=== PATIENT | male | born 1960 ===

== ENCOUNTER 2020-05-16 19:00 | Observation (INO) | payer MEDICARE, MEDICAID, SELFPAY ==
--- NOTE | 2020-05-16 19:04 | USR_ITS ---
PROCEDURE INFORMATION: Exam: US Duplex Right Lower Extremity Veins, Limited Exam date and time: 05/16/2020 7:45 PM Age: 59 years old Clinical indication: Edema, localized; Lower extremity, right; Patient HX: Swelling of RT. Lower leg; Additional info: Dvt TECHNIQUE: Imaging protocol: Real-time Duplex ultrasound of the Right Lower Extremity with 2-D du scale, color Doppler flow and spectral waveform analysis with image documentation. Limited exam was focused on the right lower extremity veins. COMPARISON: No relevant prior studies available. FINDINGS: Right deep veins: There is echogenic thrombus which obstructs and distends the right popliteal vein and the right peroneal vein. Normal Doppler flow and compressibility is seen in the right common femoral vein and superficial femoral vein. There is normal Doppler flow in the right posterior tibial vein. Right superficial veins: Unremarkable. Saphenofemoral junction is patent without thrombus. Soft tissues: Unremarkable. US/[place] [id number] IMPRESSION: Acute DVT in the right popliteal vein and peroneal vein of the calf.
[2020-05-16 19:15] VITALS: BP 147/89; PULSE 90; RESP 15; TEMP 36.8; O2SAT 98; BMI 24.2
--- NOTE | 2020-05-16 19:32 | XR_ITS ---
WS: [id number] Exam: XR foot RT 2V [id number] Date/Time of Exam: 05/16/2020 7:55 PM Reason For Exam: pain/swelling No fracture or dislocation. No destructive bone changes are seen. No soft tissue foreign bodies. Mini mal degenerative changes. XR/XR foot RT 2V [id number] IMPRESSION: 1. Minimal degenerative changes. No sign of fracture, bone destruction or other significant finding.
--- NOTE | 2020-05-16 19:32 | XR_ITS ---
WS: [id number] Exam: XR ankle RT 2V [id number] Date/Time of Exam: 05/16/2020 7:55 PM Reason For Exam: pain/swelling No acute fracture or dislocation. Lateral soft tissue swelling. The ankle mortise is intact. XR/XR ankle RT 2V [id number] IMPRESSION: 1. Lateral soft tissue swelling-no acute fracture.
[2020-05-16] MEDS: acetaminophen 325 mg Tablet 650 MG PO (19:44)
[2020-05-16 20:01] VITALS: BP 138/84; PULSE 82; RESP 18; O2SAT 97
--- NOTE | 2020-05-16 20:09 | W.ED.EXTPRO ---
HPI - Extremity Problem General: Chief complaint: Extremity Problem,Nontraumatic Stated complaint: Rt leg swelling/painful Time Seen by Provider: 05/16/20 19:27 History of Present Illness: HPI Narrative: The patient is a 59-year-old male who comes to the ER complaining of left ankle and foot pain and swelling. He says he is homeless and walks frequently and in the cold it hurts him. He does not remember injuring it though it is swollen. As he is frequently seen in [facility] he has been living in [place] for the past few months so has not seen a doctor in a while. Denies chest pain and shortness of breath. MD Complaint: extremity pain, extremity swelling and joint swelling Onset (ago): day(s) (365) Pain Consistency: constant Location: right and lower extremity Quality: sharp Radiation: none Relieving factors: nothing Exacerbating factors: walking Associated symptoms: Reports no associated symptoms; Deny chest pain or rash Review of Systems General: Reports: 10 or more systems reviewed and unremarkable except in HPI and below Const: Denies: fatigue Eyes: Denies: change in vision, blurry vision or eye redness ENMT: Denies: throat pain, swelling of lips/tongue, ear or mastoid pain or nasal congestion Card: Denies: chest pain, palpitations, irregular heart rhythm, edema, dyspnea on exertion or orthopnea Resp: Denies: dyspnea, productive cough or non-productive cough GI: Denies: abdominal pain, diarrhea or GI cramping : Denies: flank pain, urinary frequency or urinary urgency Musc: Denies: neck pain, back pain, extremity pain, joint pain, joint redness, limited range of motion or muscle weakness Skin/Breast: Reports: skin swelling (rt ankle/foot); Denies: rash, pruritus, erythema, skin pain or skin tenderness Neuro: Denies: headache(s), numbness in extremities, weakness in extremities, sensory changes, difficulty walking, dizziness, confusion or Slurred speech present Psych: Denies: anxiety or depression Endo: Denies: polyuria All/Imm: Denies: urticaria, throat swelling or tongue swelling Physical Exam Const: COMMON NORMALS: no acute distress, average body habitus, patient oriented x3, no limitations, healthy appearing, alert and well nourished GENERAL APPEARANCE: cooperative, comfortable, well kempt and well developed ORIENTATION/CONSCIOUSNESS: Yes awake, Yes oriented to person, Yes oriented to place and Yes oriented to time HENMT: COMMON NORMALS: normocephalic, external ears normal and Normal external nose present HEAD & SCALP: normal to inspection and normocephalic NOSE: Normal external nose present EXTERNAL EAR: Yes external ears normal MOUTH: Normal oral and palatal mucosa present THROAT: posterior oropharynx normal Eye: COMMON NORMALS: Equal, round and reactive pupils present and EOMs intact bilaterally GENERAL EYE: appearance normal, both eyes and all related structures PUPIL: Yes Equal, round and reactive pupils present Neck/C-Spine: COMMON NORMALS: full ROM, no lymphadenopathy, no meningeal signs and no JVD GENERAL: Yes normal visual inspection Lymph: LYMPHATIC: no lymphadenopathy noted Chest: COMMONS NORMALS: normal inspection of the chest and normal palpation of entire chest wall Resp: COMMON NORMALS: normal respiratory effort, No retractions, No use of accessory muscles, clear to auscultation bilaterally and percussion normal EFFORT & INSPECTION: Yes able to speak in complete sentences AUSCULTATION: clear to auscultation bilaterally PERCUSSION: percussion normal Cardio: COMMON NORMALS: no JVD, regular rate, regular rhythm, S1 normal heart sound present, S2 normal heart sound present and Peripheral pulses 2+ throughout RATE: regular rate RHYTHM: regular rhythm HEART SOUNDS: S1 normal heart sound present and S2 normal heart sound present PERIPHERAL PULSES: Peripheral pulses 2+ throughout GI: COMMON NORMALS: Normal to inspection, nondistended, normoactive bowel sounds present, Soft to palpation, non-tender and no masses INSPECTION: Yes normal to inspection PALPATION: Yes Soft to palpation : COMMON NORMALS: Yes no CVA tenderness BLADDER/KIDNEY EXAM: Yes no CVA tenderness Back/Pelvis: COMMON NORMALS: no CVA tenderness, thoracic and lumbar spine normal to inspection, no thoracic nor lumbar tenderness and thoraco-lumbar ROM normal Extremity: COMMON NORMALS: normal to inspection, full ROM, capillary refill normal, no joint enlargement and no pedal edema NARRATIVE EXTREMITY EXAM: Normal except right lower extremity. 2+ pitting edema mid foot, ankle, and lower calf. No significant bony tenderness. Good DP and PT pulses bilaterally GENERAL: Yes normal exam except as noted Neuro: COMMON NORMALS: patient oriented x3, CN's II-XII intact bilaterally, moves all extremities, no focal motor deficits, no sensory deficits noted and gait normal SENSORIUM/ORIENTATION: Yes alert, Yes oriented to person, Yes oriented to place and Yes oriented to time MENINGEAL SIGNS: Yes no meningeal signs Psych: COMMON NORMALS: mental status grossly normal, Normal thought process present, cooperative, normal affect and speech normal APPEARANCE: Yes well kempt ATTITUDE: Yes calm SPEECH: Yes normal speech THOUGHT PROCESS: Normal thought process present Skin: COMMON NORMALS: no rashes or lesions noted GENERAL SKIN EXAM: no rashes or lesions noted Course Vital Signs: Vital signs: Vital Signs Temperature 98.2 F 05/16/20 19:15 Pulse Rate 82 05/16/20 20:01 Respiratory Rate 18 05/16/20 20:01 Blood Pressure 138/84 05/16/20 20:01 Pulse Oximetry 97 05/16/20 20:01 MDM - Extremity (Nontraumatic) MDM Narrative: Medical decision making narrative: The patient says he has had the swollen foot for a year however his Doppler was positive for DVT to the popliteal vein. It is not completely occlusive. He has good pulses and cap refill. He was started on Lovenox. He does not have an ID and cannot get his medications so he will be admitted. Disucssed with Dr. Barton who accepts observation Differential Diagnosis: Extremity Problem Differential Diagnosis: Likely cellulitis and deep venous thrombosis of upper extremity Lab Data: Labs: Lab Results 05/16/20 05/16/20 05/16/20 Range/Units 20:50 20:50 20:50 WBC 7.0 (4.0-10.0) 10^3/ uL RBC 4.33 (4.1-5.3) 10^6/u L Hgb 13.5 (11.7-16.6) g/dL Hct 42.7 (42.0-52.0) % MCV 98.6 H (80-94) fL MCH 31.2 (28.0-34.0) pg MCHC 31.6 (30.0-36.0) g/dL RDW 14.2 (12.1-15.1) % Plt Count 194 (130-400) 10^3/c mm MPV 11.2 H (7.4-10.4) fL Neut % (Auto) 63.5 % Lymph % (Auto) 28.9 % [place] % (Auto) 5.9 % Eos % (Auto) 1.0 % Baso % (Auto) 0.4 % Neut # (Auto) 4.41 (1.8-7.7) 10^3/u L Lymph # (Auto) 2.0 (0.8-4.8) 10^3/u L [place] # (Auto) 0.4 (0.2-0.9) 10^3/u L Eos # (Auto) 0.1 (0.0-0.8) 10^3/u L Baso # (Auto) 0.0 (0.0-0.1) 10^3/u L Nucleated RBC % (a uto) 0 % Nucleated RBCs # 0.0 /100WBC Sodium 138 (136-145) mmol/L Potassium 4.3 (3.5-5.1) mmol/L Chloride 104 (98-107) mmol/L Carbon Dioxide 22 (22-29) mmol/L Anion Gap 16.3 (5-19) BUN 27 H (6-20) mg/dL Creatinine 0.9 (0.7-1.2) mg/dL GFR Calculation 86.7 L (90-130) mL/min Glucose 194 H (65-115) mg/dL Calculated Osmolal ity 296 H (285-295) mOsm/k g Calcium 9.1 (8.5-10.5) mg/dL Total Bilirubin 0.8 (0.15-1.2) mg/dL AST 29 (0-40) U/L ALT 20 (0-41) U/L Alkaline Phosphata se 64 (40-130) IU/L Troponin T Baselin e 25 H (0-15) ng/L Total Protein 6.2 L (6.6-8.7) g/dL Albumin 3.8 (3.5-5.2) g/dL Globulin 2.4 (1.3-4.6) g/dL Discharge Plan Discharge Patient Disposition: Placed in Observation Clinical Impression: Deep vein thrombosis of lower extremity Qualifiers: Affected thrombotic vein of extremity: popliteal Chronicity: acute Laterality: right Qualified Code(s): I82.431 - Acute embolism and thrombosis of right popliteal vein Discharge Diet: Usual diet Discharge Activity: Bedrest Coding Level of Care Code ED Printed Circuit Boards Stripper Etcher for g Fwd Exam Comprehensive
[2020-05-16 20:30] VITALS: BP 119/95; PULSE 98; RESP 18; O2SAT 98
--- NOTE | 2020-05-16 20:31 | ECG_ITS ---
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 Measurements Intervals Cecil Rate: 93 P: 32 CA: 166 QRS: -51 QRSD: 139 T: 77 QT: 410 QTc: 511 Interpretive Statements SINUS RHYTHM LEFT AXIS DEVIATION [QRS AXIS < -30] INTRAVENTRICULAR CONDUCTION DELAY [130+ ms QRS DURATION] POSSIBLE ANTERIOR MYOCARDIAL INFARCTION ,OF INDETERMINATE AGE No previous ECG available for comparison Electronically Signed On 05-16-2020 21:13:10 DEHYDRATING PRESS OPERATOR by Yocasta Rodarte M.D. [email or web address]
--- NOTE | 2020-05-16 20:50 | CTR_ITS ---
PROCEDURE INFORMATION: Exam: CT Angiography Chest With Contrast Exam date and time: 05/16/2020 8:58 PM Age: 59 years old Clinical indication: Abnormal findings; Other: Active dvt; Additional info: Active dvt. R/O pe. TECHNIQUE: Imaging protocol: Computed tomographic angiography of the chest with intravenous contrast. 3D rendering (Not supervised by radiologist): MIP and/or 3D reconstructed images were created by the technologist. Radiation optimization: All CT scans at this facility use at least one of these dose optimization techniques: automated exposure control; mA and/or kV adjustment per patient size (includes targeted exams where dose is matched to clinical indication); or iterative reconstruction. Contrast material: OMNI 350; Contrast volume: 95 ml; Contrast route: INTRAVENOUS (IV); COMPARISON: No relevant prior studies available. RADIATION DOSE METRICS: Total DLP (mGy-cm): 479.25 FINDINGS: Pulmonary arteries: No definite filling defects identified in the pulmonary arteries. Multiple smaller artery branches are obscured by breathing motion artifact. Aorta: Unremarkable. No aortic aneurysm. No aortic dissection. Lungs: Unremarkable. No consolidation. No masses. Pleural space: Unremarkable. No pneumothorax. No pleural effusion. Heart: Unremarkable. No cardiomegaly. No pericardial effusion. Lymph nodes: Unremarkable. No enlarged lymph nodes. Bones/joints: Unremarkable. No acute fracture. Soft tissues: Unremarkable. CT/CT angio chest PE protcl [id number] IMPRESSION: 1. No evidence for pulmonary embolus. Evaluation of the smaller arteries is limited by motion artifact. 2. No evidence for pneumonia. Radiation Dose CTDIVOL = (mGy): DLP = 479.25 (mGy-cm)
[2020-05-16 21:00] VITALS: BP 108/68; PULSE 97; RESP 18; O2SAT 98
[2020-05-16 21:22] LABS: Basophils % 0.4 %; Eosinophils # 0.1 10^3/uL (0.0-0.8); Hematocrit 42.7 % (42.0-52.0); Hemoglobin 13.5 g/dL (11.7-16.6); Lymphocytes % 28.9 %; Mean Corpuscular HGB Conc 31.6 g/dL (30.0-36.0); Mean Corpuscular Hemoglobin 31.2 pg (28.0-34.0); Mean Corpuscular Volume 98.6 fL (80-94); Mean Platelet Volume 11.2 fL (7.4-10.4); Monocytes # 0.4 10^3/uL (0.2-0.9); Monocytes % 5.9 %; Neutrophils # 4.41 10^3/uL (1.8-7.7); Neutrophils % 63.5 %; Nucleated Red Blood Cells % 0 %; Platelet Count 194 10^3/cmm (130-400); Red Blood Count 4.33 10^6/uL (4.1-5.3); Red Cell Distribution Width 14.2 % (12.1-15.1)
[2020-05-16] MEDS: iohexol 350 mg/mL 100 mL Btl IV (21:31)
[2020-05-16 21:42] LABS: Alanine Aminotransferase 20 U/L (0-41); Albumin Level 3.8 g/dL (3.5-5.2); Alkaline Phosphatase 64 IU/L (40-130); Aspartate Amino Transferase 29 U/L (0-40); Blood Urea Nitrogen 27 mg/dL (6-20); Calcium 9.1 mg/dL (8.5-10.5); Carbon Dioxide 22 mmol/L (22-29); Chloride 104 mmol/L (98-107); Globulin 2.4 g/dL (1.3-4.6); Glomerular Filtration Rate 86.7 mL/min (90-130); Glucose 194 mg/dL (65-115); Osmolality Calculated 296 mOsm/kg (285-295); Sodium 138 mmol/L (136-145); Total Bilirubin 0.8 mg/dL (0.15-1.2); Total Protein 6.2 g/dL (6.6-8.7)
[2020-05-16 21:45] LABS: Anion Gap 16.3 (5-19); Potassium 4.3 mmol/L (3.5-5.1); Troponin(5th) Baseline 25 ng/L (0-15)
[2020-05-16 22:00] VITALS: BP 85/45; PULSE 77; RESP 18; O2SAT 95
--- NOTE | 2020-05-16 22:14 | P.HP_ITS ---
Providers/Chief Complaint Chief Complaint: Rt leg swelling/painful History of Present Illness Sony Esteban is a 59 year old Venezuelan-speaking male with history of coronary disease status post stent placement 2011, dyslipidemia, anxiety presented today with chief complaint of right leg pain. Patient is stating that he is currently living in a pen[facility]iary home and was recently let go for some unknown reason, he has recently moved from [place] to [place] about 3 months ago. He had an NJ in 2011 and since then he has been on aspirin, metoprolol, atorvastatin, he is also stating Brilinta, he was diagnosed with a DVT this year at [facility], he was started on Eliquis, he has finished 6 months on Eliquis and has not received this medication for last 3 weeks. Patient is stating that he initially attributed his right leg pain to cold weather but it was not getting relieved with anything. He has not noticed any chest pain, extreme shortness of breath, fever, nausea, vomiting, dysuria or diarrhea. He presented today because of worsening right leg pain. Diagnostics in the ER revealed acute DVT of right leg, no PE was identified, considering his social circumstances decision was made to admit him, he was started on Lovenox, he did not have any ID on him, most of the information was taken from his Medicare account. Normal CBC and BMP. Troponin not significantly high. Review of Systems Const: Reports: chills, body aches and fatigue Eyes: Denies: change in vision ENMT: Denies: throat pain or odynophagia Card: Reports: edema and swelling of feet/ankles; Denies: chest pain, dyspnea on exertion or orthopnea Resp: Denies: dyspnea GI: Denies: abdominal pain : Denies: flank pain Musc: Reports: extremity pain, joint pain, joint swelling, joint warmth, joint stiffness, limited range of motion and muscle cramps; Denies: neck pain Skin/Breast: Reports: lesions Neuro: Denies: headache(s) Psych: Reports: depression; Denies: anxiety Endo: Denies: polyuria Armando/Lymph: Denies: easy bruising All/Imm: Denies: urticaria Medications/Allergies Allergies Allergy/AdvReac Type Severity Reaction Status Date / Time No Known Allergies Allergy Verified 05/16/20 19:24 PFSH Acute PFSH: Medical History (Updated 05/16/20 @ 23:27 by Aakash Barton MD) Coronary artery disease Depression Surgical History (Updated 05/16/20 @ 23:27 by Aakash Barton MD) H/O cardiac catheterization 2011 H/O lithotripsy Family History (Updated 05/16/20 @ 23:27 by Aakash Barton MD) Other Unknown family medical history Social History (Updated 05/16/20 @ 23:27 by Aakash Barton MD) Smoking and tobacco status: never smoked Alcohol intake: never Substance/Drug Use: never Housing: Homeless Vitals/I&O/Wt Last Vital Signs Temp 98.2 F 05/16/20 19:15 Pulse 82 05/16/20 20:01 Resp 18 05/16/20 20:01 BP 138/84 05/16/20 20:01 Pulse Ox 97 05/16/20 20:01 Weight last 48 hrs Weight 68.039 kg Physical Exam Narrative: EXAM NARRATIVE: This is a middle-aged Venezuelan-speaking male, Patient was laying comfortably in his bed Able to above-mentioned HPI S1, S2 sinus rhythm No acute shortness of breath Saturating well on room air Abdomen soft hyperactive bowel sounds nontender EOMI, PERRLA no neurological deficit Poor dental hygiene right leg edema with mild hyperemia around toes otherwise no active sign of cellulitis or thrombophlebitis Skin without any ulcers or gangrene Awake alert oriented x3 GCS 15 Appropriate mood and affect Data : 05/16/20 20:50 05/16/20 20:50 A&P Assessment and plan (1) Deep vein thrombosis of lower extremity: Right leg edema secondary to DVT Patient is endorsing history of DVT was diagnosed 6 months ago has been taking Eliquis until 3 weeks ago Venous Doppler is still revealing presence of clot in the peroneal vein and popliteal vein I will start him on Lovenox therapeutic dose, PE was ruled out Because of this DVT still unknown patient is stating that he got DVT because he was going up and down on stairs, We will request records from [facility] No acute respiratory distress or signs of Status: Acute Qualifiers: Affected thrombotic vein of extremity: popliteal Chronicity: acute Laterality: right Qualified Code(s): I82.431 - Acute embolism and thrombosis of right popliteal vein Additional A&P Information Depression: I will continue Klonopin for now History of coronary disease status post stent, no active chest pain I would only use aspirin with therapeutic agent, start atorvastatin, Full code Cardiac diet DVT prophylaxis not indicated currently on therapeutic dose of Lovenox Attestations Medical Necessity Statement*: Anticipating discharge in less than 48 hours continued management of persistent DVT with right leg swelling, is from pen[facility]entiary home, will need appropriate supply of medications before discharge and PCP appointment Time Spent in Patient Care: (>than 50% of time spent in counselling and/or direct pt care on unit) . 50 Coding Level of Care Code Acute Collar Stitcher for Angie Bates Diagnoses Deep vein thrombosis of lower extremity I82.431 Affected thrombotic vein of extremity: popliteal Chronicity: acute Laterality: right
[2020-05-16] MEDS: enoxaparin 80 mg/0.8 mL Syringe 65 MG SUBCUT (22:32)
[2020-05-16 22:48] LABS: Alcohol Level < 10 mg/dL (0-10)
[2020-05-16 23:00] VITALS: BP 112/60; PULSE 82; RESP 18; O2SAT 96
[2020-05-17] VITALS (10 sets, daily range): BP systolic 90–126; BP diastolic 50–76; PULSE 74–84; RESP 14–20; TEMP 36.4–36.6; O2SAT 96–99
[2020-05-17 00:08] LABS: Amphetamines Screen Urine Negative (Negative); Barbiturates Screen Urine Negative (Negative); Benzodiazepines Screen Urine Negative (Negative); Cocaine Screen Urine Negative (Negative); Opiate Screen Urine Negative (Negative); PCP Screen Urine Negative (Negative); THC Screen Urine Negative (Negative)
[2020-05-17 01:00] LABS: SARS Covid-2 Antigen Negative (Negative)
[2020-05-17 02:00] LABS: Uric Acid 5.9 mg/dL (3.4-7.0)
[2020-05-17] MEDS: morphine IR 15 mg Tablet PO ×4 (02:22→20:22)
[2020-05-17] MEDS: acetaminophen 325 mg Tablet PO ×5 (02:25→20:22)
[2020-05-17 02:31] LABS: Creatine Phosphokinase 534 U/L (39-308)
[2020-05-17] MEDS: sennosides-docusate Tablet 1 TAB PO (08:26)
[2020-05-17] MEDS: aspirin 81 mg EC Tablet PO (08:26)
[2020-05-17] MEDS: metoprolol succinate ER (24 HR) 25 mg Tablet 12.5 MG PO (08:27)
[2020-05-17] MEDS: enoxaparin 80 mg/0.8 mL Syringe 70 MG SUBCUT ×2 (10:17→23:59)
--- NOTE | 2020-05-17 10:49 | PC.CHAP ---
Pastoral Care Encounter/Spiritual Assessment Type of Contact [] Declined branding machine operator visit [] Patient/Family/Request visit [] Outpatient visit [] Follow-up visit [] Physician referral [] Code/Alert [] Routine visit [] Staff referral [] Actively dying [] Patient sleeping [] Family support [] [] Out of room [] Palliative care [] [] Receiving care in room [] Pre-surgical visit [] Trauma [] Long length of stay [] ICU visit [x] Other: Unable to communicate langue Relational/Emotional Strength [] Patient feels connected with others/family/visitors/staff [x] Distress [] Loneliness/isolation [] Abandonment Spirituality of Patient [x] Person of Nguyen [] Attends [employer] of their Nguyen [x] Believes in Prayer [] Reads Bible or Christianity materials [] There are Spiritual issues to be addressed Bank Reconciliator Interventions [] Prayer [] Active listening [] Non-anxious presence [] Spiritual/emotional support [] Crisis/trauma care [] Spiritual counseling [] Bereavement support [] Provided bereavement packet [] Provided Bible/devotional materials [] Provided toy/stuffed animal, coloring book to patient or family member [] Provided Communion [] Anointing/Warren [] Salvation [] Completed spiritual assessment [] Other: Impact on Illness or Injury [] Angry [] Fearful [] Anxious [] Often cries [] Exhaustion [] Unable to work [] Unable to attend judaism [] Unable to walk/stand [] Unable to read [] Unable to drive [] Unable to eat/drink [] Unable to sleep [] Unable to be with family [] Patient intubated [] Other: Summary Unable to communicate langue he was able to expess himself Time spent with patient 10 mins
--- NOTE | 2020-05-17 15:30 | P.PN_ITS ---
Subjective Subjective: Interval history: Who presents with right leg pain.Is a 59-year-old male with history of coronary disease with stent placement in 2011 the patient was previously [facility]. He was diagnosed with a DVT. In the ER no PE was found. [facility] is doing better. He has multiple complaints including anxiety difficult y walking. He is concerned about housing issues Vitals/I&O/Wt Last Vital Signs Temp 97.8 F 05/17/20 12:00 Pulse 78 05/17/20 12:00 Resp 18 05/17/20 12:00 BP 110/71 05/17/20 12:00 Pulse Ox 98 05/17/20 12:00 05/17/20 05/17/20 05/17/20 06:59 14:59 22:59 Intake Total 440 / 440 Balance 440 / 440 Weight last 48 hrs Weight 150 lb Physical Exam Const: COMMON NORMALS: no acute distress and patient oriented x3 GENERAL APPEARANCE: cooperative Resp: COMMON NORMALS: normal respiratory effort and No retractions Cardio: COMMON NORMALS: regular rhythm RHYTHM: regular rhythm GI: COMMON NORMALS: Soft to palpation and non-tender PALPATION: Yes Soft to palpation Neuro: COMMON NORMALS: patient oriented x3 and moves all extremities Psych: ATTITUDE: Yes bizarre THOUGHT PROCESS: disorganized Data : 05/16/20 20:50 05/16/20 20:50 A&P Assessment and plan (1) Deep vein thrombosis of lower extremity: Continue Eliquis Prescriptions written Status: Acute Qualifiers: Affected thrombotic vein of extremity: popliteal Chronicity: acute Laterality: right Qualified Code(s): I82.431 - Acute embolism and thrombosis of right popliteal vein (2) Coronary artery disease: Stable continue home medications Status: Acute Additional A&P Information Case management consulted. Disposition discharge today or tomorrow on Eliquis Attestations Medical Necessity Statement*: Sony Schwartz is being changed to inpatient status as stay will now exceed 2 midnights. Ongoing hospital care is necessary for Coding Level of Care Code Acute Office Machine Repair Shop Supervisor for Angie Bates Diagnoses Deep vein thrombosis of lower extremity I82.431 Affected thrombotic vein of extremity: popliteal Chronicity: acute Laterality: right Coronary artery disease I25.10
[2020-05-17] MEDS: atorvastatin 40 mg Tablet PO (20:22)
[2020-05-18] VITALS: BP 126/78; PULSE 102; RESP 20; TEMP 36.8; O2SAT 97
[2020-05-18 04:00] VITALS: BP 119/79; PULSE 73; RESP 18; TEMP 36.4; O2SAT 95
[2020-05-18] MEDS: acetaminophen 325 mg Tablet PO ×2 (05:12→09:06)
[2020-05-18 07:41] VITALS: BP 128/86; PULSE 86; RESP 17; TEMP 36.6; O2SAT 100
[2020-05-18 09:05] VITALS: RESP 18
[2020-05-18] MEDS: metoprolol succinate ER (24 HR) 25 mg Tablet 12.5 MG PO (09:05)
[2020-05-18] MEDS: morphine IR 15 mg Tablet PO (09:05)
[2020-05-18] MEDS: sennosides-docusate Tablet 1 TAB PO (09:06)
[2020-05-18] MEDS: aspirin 81 mg EC Tablet PO (09:06)
--- NOTE | 2020-05-18 12:36 | P.DS_ITS ---
Discharge Providers Date of Admission: 05/16/20 22:19 Date of Discharge: May 18, 2020 Attending Provider at Admission: Aakash Barton MD Attending Provider at Discharge: Toby Smiley MD Diagnoses at Discharge Discharge Diagnosis (1) Deep vein thrombosis of lower extremity: Status: Acute Qualifiers: Affected thrombotic vein of extremity: popliteal Chronicity: acute Laterality: right Qualified Code(s): I82.431 - Acute embolism and thrombosis of right popliteal vein (2) Coronary artery disease: Status: Acute Reason for Visit Reason for Visit: Rt leg swelling/painful Hospital Course Hospital Course This is a 59-year-old male with history of coronary disease, history of stent placement in 2011, hyperlipidemia, anxiety who presented to the ER with complaints of right leg pain. Patient was noted to previously be on anticoagulation. He was diagnosed recently with a DVT at [facility]. Repeat imaging showed acute DVT. He was restarted on Eliquis. No PE was found. He was also given Lovenox. His hospitalization was complicated due to him being homeless and obtaining medications. His swelling and discomfort in his extremities had improved. He was discharged with prescriptions. Recommend to follow-up with a primary care. Case management was involved and assisted in finding him a residential. At time of discharge he was discharged in stable condition. Physical Exam Const: COMMON NORMALS: no acute distress and patient oriented x3 Resp: COMMON NORMALS: normal respiratory effort and No retractions Cardio: COMMON NORMALS: regular rate and regular rhythm RATE: regular rate RHYTHM: regular rhythm GI: COMMON NORMALS: Normal to inspection, nondistended, normoactive bowel sounds present, Soft to palpation and non-tender PALPATION: Yes Soft to palpation Extremity: NARRATIVE EXTREMITY EXAM: right extremity swelling Neuro: COMMON NORMALS: patient oriented x3 and CN's II-XII intact bilaterally Psych: COMMON NORMALS: mental status grossly normal and Normal thought process present THOUGHT PROCESS: Normal thought process present Discharge Data Data Completed and Pending: Completed Studies During Hospitalization Category Date Time Status CT angio chest PE protcl [id number] Stat Cat Scan 05/16/20 20:50 Completed XR ankle RT 2V 73 600 Stat Exams 05/16/20 19:32 Completed XR foot RT 2V 736 20 Stat Exams 05/16/20 19:32 [place] [id number] Urgent Ultrasound 05/16/20 19:04 Completed Vitals: Last Vital Signs Temp 97.9 F 05/18/20 07:41 Pulse 86 05/18/20 07:41 Resp 18 05/18/20 09:05 BP 128/86 05/18/20 07:41 Pulse Ox 100 05/18/20 07:41 Discharge Plan Discharge Patient Disposition: Home Condition: Stable Prescriptions: Continued omeprazole 40 mg capsule,delayed release(DR/EC) 40 mg PO DAILY RF: 0 simvastatin 40 mg tablet 40 mg PO DAILY RF: 0 metoprolol succinate 25 mg tablet extended release 24 hr 25 mg PO DAILY Qty: 30 RF: 0 lisinopril 2.5 mg tablet 2.5 mg PO DAILY Qty: 30 RF: 0 Eliquis 5 mg tablet 5 mg PO BID Qty: 60 RF: 2 Discharge Orders: Discharge Order (Routine); Ordered 05/17/20 Ordered By: Toby Smiley Referrals: Jackie Washington APRN [Nurse Practitioner] - (Please call phone number provided on Thursday to schedule an appointment to establish care with this office. If you need additional assistance you may call [facility] Case Management depar tme at [phone]. [phone].) Discharge Diet: Usual diet Discharge Activity: Increase activity as tolerated and Bedrest Patient Instructions: Anticoagulation Therapy, Apixaban (By mouth), Deep Venous Thrombosis (DC) Discharge Attestations Time Spent in Discharge Care*: less than 30 min Quality Metrics Clinical Quality Measures During this hospital stay, did patient experience: None Coding Level of Care Code Acute Operator [employer] for Angie Bates Diagnoses Deep vein thrombosis of lower extremity I82.431 Affected thrombotic vein of extremity: popliteal Chronicity: acute Laterality: right Coronary artery disease I25.10
[2020-05-18 12:38] VITALS: BP 128/86; PULSE 86; RESP 17; TEMP 36.6; O2SAT 100
== END 2020-05-18 11:55 | disposition home or self-care (01) ==
LOC: ER 22:18 → MEDSURG 22:58
PROVIDERS: Admitting Provider Internal Medicine; Emergency Provider Family Medicine; Visit Provider Internal Medicine
DX: I82.431 Acute embolism and thrombosis of right popliteal vein (principal); I25.10 Atherosclerotic heart disease of native coronary artery without angina pectoris; M25.471 Effusion, right ankle; Z95.5 Presence of coronary angioplasty implant and graft; I25.2 Old myocardial infarction; Z79.82 Long term (current) use of aspirin
CPT/HCPCS: 12345; 71275; 73600; 73620; 80053; 80306; 80307; 82550; 84484; 84550; 85025; 87426; 93005; 93971; 96372; 99283; 99285; G0378; J1650; Q9967